=== PATIENT | female | born 1995 | race Caucasian/White ===

== ENCOUNTER 2021-07-22 04:54 | Observation (INO) | payer OTHER ==
[~2021-07-22] VITALS: Ht 162.6 cm; Wt 90.7 kg
[2021-07-22 06:33] LABS: HEMOGLOBIN 9.7 gm/dl (12.3-15.3); RED BLOOD COUNT 3.67 M/UL (4.00-5.10); WHITE BLOOD COUNT 12.2 K/UL (4.5-11.0)
[2021-07-22 07:18] LABS: BUN/CREATININE RATIO 15 (0-10)
[2021-07-22] MEDS ORDERED: WELLBUTRIN XL150 MG PO (14:11)
[2021-07-22] MEDS ORDERED: UNISOM25 MG PO (14:12)
[2021-07-22] MEDS ORDERED: FOLIC ACID1 MG PO (14:13)
[2021-07-22] MEDS ORDERED: PYRIDOXINE HCL25 MG PO (14:13)
[2021-07-22] MEDS ORDERED: PRENATAL VITAM1 EAC8 PO (14:15)
[2021-07-22] MEDS ORDERED: SUDAFED PE SIN1 EACH PO (14:16)
[2021-07-22] MEDS ORDERED: TYLENOL325 MG PO (14:17)
--- NOTE | 2021-07-22 18:59 | NUR ---
1530- OB NURSE HERE AT THIS TIME TO DO NONSTRESS TEST. STRIP READING PUT ON CHART.
== END 2021-07-23 20:48 | disposition home or self-care (01) ==
LOC: ER1 04:54 → CDU 11:52 → M/S 14:24
PROVIDERS: Physician Assistant Medical; ADMIT Obstetrics & Gynecology
DX: O99.891 Other specified diseases and conditions complicating pregnancy (principal); R00.0 Tachycardia, unspecified; Z3A.33 33 weeks gestation of pregnancy
CPT/HCPCS: ECHO; 0240U; 36415; 80053; 81001; 82550; 82553; 84439; 84443; 84484; 85025; 85379; 93005; 93306; 99285; G0378